=== PATIENT | male | born 1975 | race Hispanic/Latino ===

== ENCOUNTER 2017-10-04 20:50 | Emergency (ER) | payer SELFPAY ==
[2017-10-04] MEDS ORDERED: METHYLPREDNISOLONE 125 MG INJ ONE (21:02)
[2017-10-04] MEDS ORDERED: DIPHENHYDRAMINE 50 MG/ML VIAL ONE (21:02)
--- NOTE | 2017-10-04 22:03 | EDPHYS ---
Physician Documentation [facility] Name: Stone Balderrama Age: 42 yrs Sex: Male : 1975 Arrival Date: 10/04/2017 Time: 20:51 Bed 27 Private MD: ED Physician Hernesto Huffman HPI: 10/04 22:36 This 42 yrs old Male presents to ER via Ambulatory with complaints of Allergic jr8 Reaction. 22:36 The patient presents with rash. Onset: The symptoms/episode began/occurred acutely, 2 jr8 day(s) ago. Associated signs and symptoms: Pertinent positives: hives. Possible causes: The patient has no known obvious cause for the symptoms. At home the patient or guardian has treated the symptoms with nothing. Severity of symptoms: At their worst the symptoms were mild in the emergency department the symptoms are unchanged. The patient has not experienced similar symptoms in the past. The patient has not recently seen a physician. Historical: - Allergies: 20:57 No Known Allergies; la1 - PMHx: 20:57 None; la1 - Immunization history:: Adult Immunizations up to date. - Social history:: Smoking status: Patient/guardian denies using tobacco. ROS: 22:36 Eyes: Negative for injury, pain, redness, and discharge, ENT: Negative for injury, jr8 pain, and discharge, Neck: Negative for injury, pain, and swelling, Cardiovascular: Negative for chest pain, palpitations, and edema, Respiratory: Negative for shortness of breath, cough, wheezing, and pleuritic chest pain, Abdomen/GI: Negative for abdominal pain, nausea, vomiting, diarrhea, and constipation, Back: Negative for injury and pain, MS/Extremity: Negative for injury and deformity, Neuro: Negative for headache, weakness, numbness, tingling, and seizure. 22:36 Skin: Positive for rash, diffusely. Exam: 22:36 Eyes: Pupils equal round and reactive to light, extra-ocular motions intact. Lids and jr8 lashes normal. Conjunctiva and sclera are non-icteric and not injected. Cornea within normal limits. Periorbital areas with no swelling, redness, or edema. ENT: Nares patent. No nasal discharge, no septal abnormalities noted. Tympanic membranes are normal and external auditory canals are clear. Oropharynx with no redness, swelling, or masses, exudates, or evidence of obstruction, uvula midline. Mucous membranes moist. Neck: Trachea midline, no thyromegaly or masses palpated, and no cervical lymphadenopathy. Supple, full range of motion without nuchal rigidity, or vertebral point tenderness. No Meningismus. Cardiovascular: Regular rate and rhythm with a normal S1 and S2. No gallops, murmurs, or rubs. Normal PMI, no JVD. No pulse deficits. Respiratory: Lungs have equal breath sounds bilaterally, clear to auscultation and percussion. No rales, rhonchi or wheezes noted. No increased work of breathing, no retractions or nasal flaring. Abdomen/GI: Soft, non-tender, with normal bowel sounds. No distension or tympany. No guarding or rebound. No evidence of tenderness throughout. Back: No spinal tenderness. No costovertebral tenderness. Full range of motion. MS/ Extremity: Pulses equal, no cyanosis. Neurovascular intact. Full, normal range of motion. Neuro: Awake and alert, GCS 15, oriented to person, place, time, and situation. Cranial nerves II-XII grossly intact. Motor strength 5/5 in all extremities. Sensory grossly intact. Cerebellar exam normal. Normal gait. 22:36 Skin: rash a mild rash is noted, rash can be described as erythematous, urticarial, and is diffusely located. Vital Signs: 20:57 BP 155 / 90; Pulse 89; Resp 19; Temp 98.2(TE); Pulse Ox 100% on R/A; Weight 131.54 kg; la1 Height 5 ft. 6 in. (167.64 cm); 22:20 BP 148 / 82; Pulse 90; Resp 18; Pulse Ox 99% ; tl3 20:57 Body Mass Index 46.81 (131.54 kg, 167.64 cm) la1 MDM: 21:28 Patient medically screened. jr8 22:02 Data reviewed: vital signs, nurses notes, and as a result, I will discharge patient. jr8 Data interpreted: Pulse oximetry: on room air is 100 %. Interpretation: normal. Counseling: I had a detailed discussion with the patient and/or guardian regarding: the historical points, exam findings, and any diagnostic results supporting the discharge/admit diagnosis, the need for outpatient follow up, a family practitioner, to return to the emergency department if symptoms worsen or persist or if there are any questions or concerns that arise at home. Response to treatment: the patient's symptoms have markedly improved after treatment. Administered Medications: 21:05 Drug: SOLU-Medrol 125 mg Route: IM; Site: right gluteus; la1 21:57 Follow up: Response: No adverse reaction; Marked relief of symptoms tl3 21:05 Drug: Benadryl 25 mg Route: IM; Site: right deltoid; la1 21:57 Follow up: Response: No adverse reaction; Marked relief of symptoms tl3 Disposition: 10/05 08:04 Co-signature as Attending Physician, Hernesto Huffman MD I agree with the assessment and layla plan of care. Disposition: 10/04/17 22:03 Discharged to Home. Impression: Allergic Reaction . - Condition is Stable. - Discharge Instructions: Anaphylactic Reaction. - Prescriptions for Prednisone 20 mg Oral Tablet - take 3 tablet by ORAL route once daily for 5 days; 15 tablet. - Medication Reconciliation Form, Thank You Letter, Antibiotic Education, Prescription Opioid Use form. - Follow up: Private Physician; When: 2 - 3 days; Reason: Recheck today's complaints, Continuance of care, Re-evaluation by your physician. - Problem is new. - Symptoms have improved. - Notes: Benadryl OTC for itching and rash as dosed on box Signatures: Hernesto Huffman MD MD cha Roszak, Josh, PA PA jr8 Jesus Graham RN RN la1 Viky Lee RN RN tl3 Corrections: (The following items were deleted from the chart) 10/04 22:21 22:03 10/04/2017 22:03 Discharged to Home. Impression: Allergic Reaction . Condition is tl3 Stable. Forms are Medication Reconciliation Form, Thank You Letter, Antibiotic Education, Prescription Opioid Use. Follow up: Private Physician; When: 2 - 3 days; Reason: Recheck today's complaints, Continuance of care, Re-evaluation by your physician. Problem is new. Symptoms have improved. jr8
--- NOTE | 2017-10-04 22:03 | ER ---
Nurse's Notes [facility] Name: Stone Balderrama Age: 42 yrs Sex: Male : 1975 Arrival Date: 10/04/2017 Time: 20:51 Bed 27 Private MD: Diagnosis: Allergic Reaction Presentation: 10/04 20:56 Presenting complaint: Patient states: I have been having a rash and very itchy for the la1 last 2 days, airway patent, respirations even and unlabored. Transition of care: patient was not received from another setting of care. Onset: The symptoms/episode began/occurred gradually, yesterday. Anaphylaxis evaluation, no signs or symptoms of anaphylaxis were noted. Onset of symptoms was October 04, 2017. Initial Sepsis Screen: Does the patient meet any 2 criteria? No. Patient's initial sepsis screen is negative. Does the patient have a suspected source of infection? No. Patient's initial sepsis screen is negative. Care prior to arrival: None. 20:56 Method Of Arrival: Ambulatory la1 20:56 Acuity: [facility] 4 la1 Historical: - Allergies: 20:57 No Known Allergies; la1 - PMHx: 20:57 None; la1 - Immunization history:: Adult Immunizations up to date. - Social history:: Smoking status: Patient/guardian denies using tobacco. Screenin:37 Abuse screen: Denies threats or abuse. Nutritional screening: No deficits noted. tl3 Tuberculosis screening: No symptoms or risk factors identified. Fall Risk None identified. Assessment: 21:37 General: Appears in no apparent distress. comfortable, well groomed, well developed, tl3 well nourished, Behavior is calm, cooperative, appropriate for age. Pain: Denies pain. Neuro: Level of Consciousness is awake, alert, obeys commands, Oriented to person, place, time, situation, Appropriate for age. Cardiovascular: Heart tones S1 S2 present Capillary refill < 3 seconds in bilateral fingers. Respiratory: Airway is patent Trachea midline Respiratory effort is even, unlabored, Respiratory pattern is regular, symmetrical, Breath sounds are clear bilaterally. GI: No signs and/or symptoms were reported involving the gastrointestinal system. : No signs and/or symptoms were reported regarding the genitourinary system. EENT: No signs and/or symptoms were reported regarding the EENT system. Derm: No signs and/or symptoms reported regarding the dermatologic system. 22:20 Reassessment: Patient appears in no apparent distress at this time. No changes from tl3 previously documented assessment. Patient and/or family updated on plan of care and expected duration. Pain level reassessed. Patient is alert, oriented x 3, equal unlabored respirations, skin warm/dry/pink. hives resolved. Vital Signs: 20:57 BP 155 / 90; Pulse 89; Resp 19; Temp 98.2(TE); Pulse Ox 100% on R/A; Weight 131.54 kg; la1 Height 5 ft. 6 in. (167.64 cm); 22:20 BP 148 / 82; Pulse 90; Resp 18; Pulse Ox 99% ; tl3 20:57 Body Mass Index 46.81 (131.54 kg, 167.64 cm) la1 ED Course: 20:51 Patient arrived in ED. ds1 20:57 Triage completed. la1 20:58 Arm band placed on left wrist. la1 21:26 Viky eLe, RN is Primary Nurse. tl3 21:28 Zenon Thompson PA is PHCP. jr8 21:28 Hernesto Huffman MD is Attending Physician. jr8 21:37 Awaiting ED provider evaluation. tl3 21:37 Patient has correct armband on for positive identification. Bed in low position. Adult tl3 w/ patient. 21:37 No provider procedures requiring assistance completed. Patient did not have IV access tl3 during this emergency room visit. Administered Medications: 21:05 Drug: SOLU-Medrol 125 mg Route: IM; Site: right gluteus; la1 21:57 Follow up: Response: No adverse reaction; Marked relief of symptoms tl3 21:05 Drug: Benadryl 25 mg Route: IM; Site: right deltoid; la1 21:57 Follow up: Response: No adverse reaction; Marked relief of symptoms tl3 Outcome: 22:03 Discharge ordered by . jr8 22:20 Discharged to home ambulatory. tl3 22:20 Condition: good 22:20 Discharge instructions given to patient, family, Instructed on discharge instructions, follow up and referral plans. medication usage, Demonstrated understanding of instructions, follow-up care, medications, Prescriptions given X 1. 22:21 Patient left the ED. tl3 Signatures: Marsha Mai ds1 Zenon Thompson PA PA jr8 Jesus Graham, RN RN la1 Viky Lee, RN RN tl3
== END 2017-10-04 22:21 | disposition home or self-care (01) ==
LOC: ER 20:50
DX: L50.0 Allergic urticaria (principal)
CPT/HCPCS: 96372; 99283; J2930